=== PATIENT | female | born 1980 | race Caucasian/White ===

== ENCOUNTER 2023-10-26 10:28 | Observation (INO) ==
[2023-10-26] MEDS ORDERED: Dexamethasone IV 4 MG/ML VIAL 1 ml VIAL ONE (10:30)
[2023-10-26] MEDS ORDERED: fentaNYL 250 mcg/5 ml 50 MCG/ML 5 ml VIAL (250 MCG) ONE (10:30)
[2023-10-26] MEDS ORDERED: Propofol 10 MG/ML 20 ML BTL ONE (10:30)
[2023-10-26] MEDS ORDERED: Lidocaine 2% PF 5 ML VIAL ONE (10:30)
[2023-10-26] MEDS ORDERED: Ondansetron 4 mg VIAL 2 MG/ML 2 ml VIAL ONE (10:30)
[2023-10-26] MEDS ORDERED: Rocuronium 50 mg VIAL 10 mg/ml 5 ml VIAL (50 mg) ONE ×2 (10:30→13:46)
[2023-10-26] MEDS ORDERED: Midazolam 2 mg/2 ml VIAL 1 mg/ml 2 ml VIAL (2 mg) ONE (10:30)
[2023-10-26] MEDS ORDERED: Ondansetron 4 mg VIAL 2 MG/ML 2 ml VIAL IV PRN (11:03)
[2023-10-26] MEDS ORDERED: Naloxone 0.4 mg VIAL 0.4 mg/ml 1 ml VIAL IV PRN (11:03)
[2023-10-26] MEDS ORDERED: Thrombin 5,000 UNITS 1 APPLIC KIT - topical use - TOPICAL ONE (11:08)
[2023-10-26] MEDS ORDERED: ceFAZolin VIAL VIAL ONE (11:08)
[2023-10-26] MEDS ORDERED: Lidocaine 1% w EPI 1:100,000 MDV 20 ML VIAL ONE (11:08)
[2023-10-26] MEDS ORDERED: Gelfoam Sponge SIZE 100 SPONGE ONE (11:09)
[2023-10-26] MEDS ORDERED: Buffered Lidocaine 1% SYRIN 1 ml ONE (11:15)
[2023-10-26] MEDS ORDERED: Chlorhexidine MOUTHWASH 0.12% 15 ML UDC ONE (11:15)
[2023-10-26] MEDS ORDERED: ceFAZolin *3* GM in NS PREMIX 0 GM/0 ML BAG IV ONE (11:15)
[2023-10-26 11:19] LABS: Rapid COVID-19 Molecular Undetected (Undetected)
[2023-10-26] MEDS: Lactated Ringers 1000 ml BAG 1,000 ML IV SCH ×2 (11:45→17:16)
[2023-10-26] MEDS: Buffered Lidocaine 1% SYRIN 1 ml INTRADERM ONE (11:45)
[2023-10-26] MEDS ORDERED: ceFAZolin 2 GM in NS PREMIX 2 GM/100 ML BAG IVPB ONE (12:50)
[2023-10-26] MEDS ORDERED: HYDROmorphone 0.5 MG/0.5 ML SYRINGE ONE ×2 (13:54→14:25)
[2023-10-26] MEDS ORDERED: Thrombin 5,000 UNITS(BOVINE) for Ultrasound Guided Pseudoaneursym ONE (14:11)
[2023-10-26] MEDS ORDERED: Phenol 1.4% Throat Spray BTL MT PRN (15:27)
[2023-10-26] MEDS ORDERED: Calcium Carb (TUMS) 500 mg CHEW TAB PO PRN (15:27)
[2023-10-26] MEDS ORDERED: Magnesium Hydroxide LIQ 30 ML UDC PO PRN (15:27)
[2023-10-26] MEDS ORDERED: Senna TAB 8.6 mg TAB PO PRN (15:27)
[2023-10-26] MEDS ORDERED: Benzocaine/Menthol LOZ MT PRN (15:27)
[2023-10-26] MEDS ORDERED: Dextran 70/Hypromellose Tears Eye Drops 15 ml BTL (for Artificials Tears) BOTH EYES PRN (15:27)
[2023-10-26] MEDS ORDERED: Albuterol HFA INHALER 8 gm MDI INH PRN (15:31)
[2023-10-26] MEDS ORDERED: fentaNYL 100 mcg/2 ml 50 MCG/ML VIAL ONE (15:34)
[2023-10-26] MEDS: fentaNYL 100 mcg/2 ml 50 MCG/ML VIAL IV PRN (15:36)
[2023-10-26] MEDS: Ondansetron 4 mg VIAL 2 MG/ML 2 ml VIAL IV PRN (16:45)
[2023-10-26] MEDS: Ondansetron 4 mg VIAL 2 MG/ML 2 ml VIAL ONE ×2 (17:20→17:54)
[2023-10-26] MEDS: Morphine 2 MG/ML SYRINGE IV PRN (17:31)
[2023-10-26] MEDS: Ondansetron 4 mg VIAL 2 MG/ML 2 ml VIAL IV ONE (17:31)
[2023-10-26] MEDS: FLUTICASONE INH SCH (21:48)
[2023-10-26] MEDS: SALMETEROL INH SCH (21:48)
[2023-10-27] MEDS: PANTOPRAZOLE 20 MG PO SCH (09:58)
[2023-10-27 10:23] VITALS: BP 124/70
== END 2023-10-27 11:20 | disposition home or self-care (01) ==
LOC: OR 10:28 → SSU 10:28
PROVIDERS: ADMIT Neurological Surgery; ATTEND Neurological Surgery
PROC: O.NEPCD (2023-10-26 12:45)